=== PATIENT | female | born 1975 | race Two or more races ===

== ENCOUNTER 2021-03-14 17:44 | Inpatient (IN) | payer OTHER ==
[~2021-03-14] VITALS: Ht 160 cm
[2021-03-14] MEDS ORDERED: COZAAR25 MG (17:51)
[2021-03-14] MEDS ORDERED: CLONAZEPAM1 GM (17:51)
[2021-03-14] MEDS ORDERED: ABILIFY2 MG (17:52)
[2021-03-14] MEDS ORDERED: PANTOPRAZOLE SO40 M2 (17:53)
[2021-03-14] MEDS ORDERED: TRAZODONE HCL5 GM (17:53)
== END 2021-03-17 13:00 | disposition home or self-care (01) | DRG 811 ==
LOC: ER 17:44 → MEDI 21:02 → MEDJ 21:02
PROVIDERS: ADMIT Internal Medicine; ATTEND Internal Medicine
PROC: 30233N1 Transfusion of Nonautologous Red Blood Cells into Peripheral Vein, Percutaneous Approach (ICD-10-PCS; principal; 2021-03-15)
DX: D64.9 Anemia, unspecified (principal); J18.8 Other pneumonia, unspecified organism; I10 Essential (primary) hypertension; D50.8 Other iron deficiency anemias; Z20.822 Contact with and (suspected) exposure to COVID-19